=== PATIENT | female | born 1970 | race Hispanic/Latino ===

== ENCOUNTER 2018-08-31 10:31 | Emergency (ER) | payer MEDICAID ==
[2018-08-31 10:34] VITALS: TEMP 97.7; BMI 30.7
[2018-08-31] MEDS ORDERED: Sodium Chloride 0.9% 1,000 ML IV STA (11:04)
--- NOTE | 2018-08-31 11:07 | ED PDOC ---
Syncope/Near Syncope/Dizziness Time Seen by Provider: 08/31/18 10:54 Chief Complaint (Nursing): Syncope Chief Complaint (Provider): Syncope History Per: Patient History/Exam Limitations: no limitations Onset/Duration Of Symptoms: Hrs Current Symptoms Are (Timing): Gone Now Additional Complaint(s): 47 year old female with no past medical history who is presenting to the ED for evaluation of syncope onset at work just prior to arrival. Patient states that she was sitting in a chair and felt woozy right before she fainted. She reports that she had been feeling hot all day and reports that she thinks she was unconsciousness for less than a minute as speaker announcement was happening when she came to. She denies feeling any nausea, headaches, or dizziness and sta jorge alberto that she simply felt weird. Patient admits that she feels completely fine now and denies any fall or trauma as she didnt hit the floor. As per friend, in her routine blood work there were no detectible levels of B12 and she was started on shots. Patient also denies any recent travel, leg swelling, or calf tenderness. PMD: [place] LNMP: January or so, she is on Control Pill Past Medical History Reviewed: Historical Data, Nursing Documentation, Vital Signs Vital Signs: Last Vital Signs Temp 97.7 F 08/31/18 10:34 Pulse 89 08/31/18 10:34 Resp 18 08/31/18 10:34 BP 100/76 08/31/18 10:34 Pulse Ox 100 08/31/18 10:34 - Medical History PMH: No Chronic Diseases - Surgical History Surgical History: No Surg Hx - Family History Family History: States: Unknown Family Hx - Social History Current smoker - smoking cessation education provided: No Alcohol: None Drugs: Denies - Home Medications Home Medications: Ambulatory Orders Medication Instructions Recorded Nitrofurantoin Macrocrystals 100 mg PO BID #9 cap 08/31/18 [Macrobid] - Allergies Allergies/Adverse Reactions: Allergies Allergy/AdvReac Type Severity Reaction Status Date / Time No Known Allergies Allergy Verified 08/31/18 11:02 Review of Systems ROS Statement: Except As Marked, All Systems Reviewed And Found Negative Gastrointestinal: Negative for: Nausea Musculoskeletal: Negative for: Leg Pain Neurological: Positive for: Other (syncope ). Negative for: Weakness, Headache, Dizziness Physical Exam - Reviewed Nursing Documentation Reviewed: Yes Vital Signs Reviewed: Yes - Physical Exam Appears: Positive for: Non-toxic, No Acute Distress Head Exam: Positive for: ATRAUMATIC, NORMAL INSPECTION, NORMOCEPHALIC Skin: Positive for: Normal Color, Warm, DRY Eye Exam: Positive for: EOMI, Normal appearance, PERRL ENT: Positive for: Normal ENT Inspection Neck: Positive for: Normal, Painless ROM Cardiovascular/Chest: Positive for: Regular Rate, Rhythm. Negative for: Murmur Respiratory: Positive for: Normal Breath Sounds. Negative for: Respiratory Distress Gastrointestinal/Abdominal: Positive for: Normal Exam, Soft. Negative for: Tenderness Back: Positive for: Normal Inspection Extremity: Positive for: Normal ROM. 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 Negative for: Motor/Sensory Deficits - Laboratory Results Result Diagrams: 08/31/18 11:00 08/31/18 11:00 - ECG O2 Sat by Pulse Oximetry: 100 (RA) Pulse Ox Interpretation: Normal Medical Decision Making Medical Decision Making: Time: 11:03 Plan: --CT head --EKG --CMP --TSH --Vitamin B12 --ED Urine --ED Urine Dipstick --CBC --Coags --CXR --Glucose, POC --IV Fluids --Urinalysis Accession No. : [id number] Patient Name / ID : ZAID GONZALEZ / [id number] Exam Date : 08/31/2018 10:52:44 ( Approved ) Study Comment : Sex / Age : F / 47Y Creator : Viv Guillaume MD Dictator : Viv Guillaume MD Physician Obstetrician : Animal Shelter Clerk : Viv Guillaume MD Approver2 : Report Date : 08/31/2018 17:05:15 My Comment : HISTORY: Syncope COMPARISON: None available. TECHNIQUE: Chest PA and lateral FINDINGS: LUNGS: No focal consolidation. Please note that chest x-ray has limited sensitivity for the detection of pulmonary masses. PLEURA: No significant pleural effusion identified. No definite pneumothorax . CARDIOVASCULAR: The cardiomediastinal silhouette appears within normal limits of size. No atherosclerotic calcification present. OSSEOUS STRUCTURES: No acute osseous abnormality identified. VISUALIZED UPPER ABDOMEN: Unremarkable. OTHER FINDINGS: None. IMPRESSION: No focal consolidation identified. Accession No. : [id number] Patient Name / ID : ZAID GONZALEZ / [id number] Exam Date : 08/31/2018 11:31:04 ( Approved ) Study Comment : Sex / Age : F / 47Y Creator : Jess Ashley Dictator : Jess Ashley Physician Obstetrician : Animal Shelter Clerk : Jess Ashley Approver2 : Report Date : 08/31/2018 12:36:20 My Comment : Date of service: 08/31/2018 PROCEDURE: CT HEAD WITHOUT CONTRAST. HISTORY: Syncope COMPARISON: None available. TECHNIQUE: Axial computed tomography images were obtained through the head/brain without intravenous contrast. Radiation dose: Total exam DLP = 780.79 mGy-cm. This CT exam was performed using one or more of the following dose reduction techniques: Automated exposure control, adjustment of the mA and/or kV according to patient size, and/or use of iterative reconstruction technique. FINDINGS: HEMORRHAGE: No intracranial hemorrhage. BRAIN: No mass effect or edema. No atrophy or chronic microvascular ischemic changes. VENTRICLES: Unremarkable. No hydrocephalus. CALVARIUM: Unremarkable. PARANASAL SINUSES: Unremarkable as visualized. No significant inflammatory changes. MASTOID AIR CELLS: Unremarkable as visualized. No inflammatory changes. OTHER FINDINGS: None. IMPRESSION: Normal CT of the Head. Scribe Attestation: Documented by Tiny Bernal, acting as a scribe for Shayy Mirza MD. Provider Scribe Attestation: All medical record entries made by the Scribe were at my direction and personally dictated by me. I have reviewed the chart and agree that the record accurately reflects my personal performance of the history, physical exam, medical decision making, and the department course for this patient. I have also personally directed, reviewed, and agree with the discharge instructions and disposition. Disposition - Clinical Impression Clinical Impression: Syncope, UTI (urinary tract infection) - Disposition Disposition: Routine/Home Disposition Time: 14:09 Condition: IMPROVED Additional Instructions[facility]. Prescriptions: Nitrofurantoin Macrocrystals [Macrobid] 100 mg PO BID #9 cap Instructions: Urinary Tract Infections in Adults, Syncope (Fainting) Forms: [employer] ([place])
[2018-08-31 11:23] LABS: BASO % 0.6 % (0.0-2.0); EOS # 0.2 K/uL (0.0-0.7); EOS % 2.5 % (0.0-4.0); HEMOGLOBIN 12.9 g/dL (12.0-16.0); LYMPH # 1.3 K/uL (1.0-4.3); LYMPH % 16.1 % (20.0-40.0); MEAN CELL VOLUME 89.5 fl (81.0-99.0); MEAN CORPUSCULAR HEMOGLOBIN 30.4 pg (27.0-31.0); MEAN CORPUSCULAR HGB CONC 33.9 g/dL (33.0-37.0); MEAN PLATELET VOLUME 7.7 fl (7.2-11.7); MONO # 0.4 K/uL (0.0-0.8); MONO % 5.2 % (0.0-10.0); NEUT # 5.9 K/uL (1.8-7.0); NEUT % 75.6 % (50.0-75.0); NRBC % 0.2 % (0.0-0.0); RBC 4.25 Mil/uL (3.80-5.20); RED CELL DISTRIBUTION WIDTH 14.6 % (11.5-14.5); WHITE BLOOD COUNT 7.8 K/uL (4.8-10.8)
[2018-08-31 11:33] LABS: BLOOD UREA NITROGEN 18 mg/dl (7-17); CALCIUM 9.1 mg/dL (8.4-10.2); GFR NON-AFRICAN AMERICAN > 60
[2018-08-31 11:52] LABS: ALB/GLOB RATIO 1.1 (1.0-2.1); ALT/SGPT 24 U/L (9-52); AST/SGOT 54 U/L (14-36)
[2018-08-31 12:29] LABS: SQUAMOUS EPITHIAL 43 /hpf (0-5); URINE BILIRUBIN SMALL (NEGATIVE); URINE BLOOD SMALL (NEGATIVE); URINE CLARITY CLOUDY (Clear); URINE COLOR AMBER (YELLOW); URINE GLUCOSE (UA) NEG (NEGATIVE); URINE HYALINE CAST >20 /hpf (0-2); URINE LEUKOCYTE ESTERASE NEG Leu/uL (Negative); URINE PROTEIN 100 mg/dL (NEGATIVE)
--- NOTE | 2018-08-31 12:40 | CT ---
Date of service: 08/31/2018 PROCEDURE: CT HEAD WITHOUT CONTRAST. HISTORY: Syncope COMPARISON: None available. TECHNIQUE: Axial computed tomography images were obtained through the head/brain without intravenous contrast. Radiation dose: Total exam DLP = 780.79 mGy-cm. This CT exam was performed using one or more of the following dose reduction techniques: Automated exposure control, adjustment of the mA and/or kV according to patient size, and/or use of iterative reconstruction technique. FINDINGS: HEMORRHAGE: No intracranial hemorrhage. BRAIN: No mass effect or edema. No atrophy or chronic microvascular ischemic changes. VENTRICLES: Unremarkable. No hydrocephalus. CALVARIUM: Unremarkable. PARANASAL SINUSES: Unremarkable as visualized. No significant inflammatory changes. MASTOID AIR CELLS: Unremarkable as visualized. No inflammatory changes. OTHER FINDINGS: None. IMPRESSION: Normal CT of the Head.
[2018-08-31 14:54] VITALS: BP 102/76; PULSE 84; RESP 20
--- NOTE | 2018-08-31 17:08 | RAD ---
HISTORY: Syncope COMPARISON: None available. TECHNIQUE: Chest PA and lateral FINDINGS: LUNGS: No focal consolidation. Please note that chest x-ray has limited sensitivity for the detection of pulmonary masses. PLEURA: No significant pleural effusion identified. No definite pneumothorax . CARDIOVASCULAR: The cardiomediastinal silhouette appears within normal limits of size. No atherosclerotic calcification present. OSSEOUS STRUCTURES: No acute osseous abnormality identified. VISUALIZED UPPER ABDOMEN: Unremarkable. OTHER FINDINGS: None. IMPRESSION: No focal consolidation identified.
[2018-08-31 17:40] VITALS: O2SAT 100
--- NOTE | 2018-09-01 13:19 | CARD ---
APPROVED REPORT Date of service: 08/31/2018 EKG Measurement Heart [id number] <Conclusion> Normal sinus rhythm Possible Left atrial enlargement Borderline ECG
== END 2018-08-31 14:53 | disposition home or self-care (01) ==
LOC: H.ER 10:31
DX: R55 Syncope and collapse (principal); N39.0 Urinary tract infection, site not specified
CPT/HCPCS: 70450; 71046; 80053; 81003; 81025; 82607; 82948; 84443; 85025; 93005; 96360; 99285; J7030